=== PATIENT | female | born 1960 | race Caucasian/White ===

== ENCOUNTER → 2021-11-07 14:03 | Outpatient (CLI) | payer OTHER, SELFPAY ==
--- NOTE | ~2021-11-07 | MM_ITS ---
EXAMINATION: MM screening eduar BI w elissa HISTORY: Screening TECHNIQUE: Craniocaudal and mediolateral oblique 3-D tomosynthesis images were obtained and synthetic 2-D images were generated. CAD analysis was submitted and interpreted. COMPARISON: No prior mammogram is available for comparison at this institution. BREAST PARENCHYMAL COMPOSITION: The breasts are heterogenously dense, which may obscure small masses FINDINGS: There is no evidence of suspicious mass, calcification, or architectural distortion to sugg est malignancy in either breast. There has been no suspicious interval change. IMPRESSION: 1. No mammographic evidence of malignancy. 2. Recommend routine screening mammography in one year. BI-RADS Category 1: Negative Reviewed, dictated and finalized at location A.
== END ==
PROVIDERS: PCP Family Medicine; Visit Provider Nurse Practitioner Gerontology
DX: Z12.31 Encounter for screening mammogram for malignant neoplasm of breast (principal)
CPT/HCPCS: 77063; 77067

== ENCOUNTER 2022-06-22 07:57 | Outpatient (CLI) | payer OTHER, SELFPAY ==
--- NOTE | ~2022-06-22 | MMUS_ITS ---
EXAMINATION: MM diagnostic eduar RT w elissa, US breast RT complete HISTORY: Breast mass at 10:00 TECHNIQUE: Full field and spot ML, MLO and CC 3-D tomosynthesis images of the right breast were perfo rmed and synthetic 2-D images were generated. CAD analysis was submitted and interpreted. High resolu tion complete right breast ultrasound examination including all 4 quadrants and subareolar area was p erformed. COMPARISON: 11/07/2021 bilateral screening mammogram BREAST PARENCHYMAL COMPOSITION: The breasts are extremely dense, which lowers the sensitivity of mamm ography. FINDINGS: MAMMOGRAPHIC FINDINGS: No suspicious mass or architectural distortion, malignant callus case, skin thickening or retraction of the right breast is detected. The very dense stroma may obscure masses. Ultrasound examination of the complete right breast was per formed. ULTRASOUND: No suspicious mass or shadowing is detected. No cyst or other significant sonographic findings is not ed. IMPRESSION: 1. No mammographic evidence of malignancy 2. Routine mammographic screening is recommended. BI-RADS Category 1: Negative Reviewed, dictated and finalized at location A. MATION TECHNOLOGIST IMPRESSION: 1. No mammographic evidence of malignancy 2. Routine mammographic screening is recommended. BI-RADS Category 1: Negative
--- NOTE | ~2022-06-22 | MR_ITS ---
EXAMINATION: MR brain/brain stem wo con DATE: 06/22/2022 09:23 INDICATION: Vertigo. Headache. TECHNIQUE: Magnetic resonance imaging (MRI) of the brain and brainstem was performed without intraven ous contrast. COMPARISON: None. FINDINGS: There is no intracranial hemorrhage, acute infarction, or abnormal intracranial mass lesion . The ventricles are normal in size. The paranasal sinuses are clear. The mastoid air cells are nathaniel l. The orbits are normal. IMPRESSION: 1. Normal brain. Reviewed, dictated and finalized at location A. ERSHIP DEVELOPMENT MANAGER IMPRESSION: 1. Normal brain.
== END 2022-06-22 07:58 ==
PROVIDERS: PCP Family Medicine; Visit Provider Family Medicine
DX: R51.9 Headache, unspecified (principal); R42 Dizziness and giddiness; N63.12 Unspecified lump in the right breast, upper inner quadrant
CPT/HCPCS: 70551; 76641; 77061; 77065; G0279

== ENCOUNTER → 2023-02-28 11:37 | Outpatient (CLI) | payer OTHER, SELFPAY ==
--- NOTE | ~2023-02-28 | MM_ITS ---
EXAMINATION: MM screening eduar BI w elissa HISTORY: Screening mammogram TECHNIQUE: Craniocaudal and mediolateral oblique 3-D tomosynthesis images were obtained and synthetic 2-D images were generated. CAD analysis was submitted and interpreted. COMPARISON: June 22, 2022 diagnostic right mammogram and complete right breast ultrasound November 07, 2021 bilateral screening mammogram BREAST PARENCHYMAL COMPOSITION: The breasts are extremely dense, which lowers the sensitivity of mamm ography. FINDINGS: There is no evidence of suspicious mass, calcification, or architectural distortion to sugg est malignancy in either breast. There has been no suspicious interval change. IMPRESSION: 1. No mammographic evidence of malignancy. 2. Recommend routine screening mammography in one year. BI-RADS Category 1: Negative Reviewed, dictated and finalized at location A.
== END ==
PROVIDERS: PCP Family Medicine; Visit Provider Family Medicine
DX: Z12.31 Encounter for screening mammogram for malignant neoplasm of breast (principal)
CPT/HCPCS: 77063; 77067

== ENCOUNTER 2023-04-10 16:33 | Emergency (ER) | payer OTHER, SELFPAY ==
--- NOTE | ~2023-04-10 | XR_ITS ---
EXAM: XR finger 4th LT min 2V DATE: 04/10/2023 17:30 HISTORY: finger injury, pain/swelling lt ring finger . COMPARISON: None available. FINDINGS: Normal mineralization. Mildly comminuted, predominantly oblique fracture of the midshaft o f the left fourth proximal phalange, with 3 mm overlap, 3 mm anteromedial displacement, and mild post erior angulation. No definite intra-articular extension No lytic or blastic lesion. Joint spaces are maintained. No erosion or periosteal change. Soft tissues within normal limits. IMPRESSION: Predominantly oblique fracture of the midshaft of the left fourth proximal phalange with mild overlap, displacement, and minimal angulation. Reviewed, dictated and finalized at location K. S DEPARTMENT MANAGER IMPRESSION: Predominantly oblique fracture of the midshaft of the left fourth p roximal phalange with mild overlap, displacement, and minimal angulation.
[2023-04-10 16:52] VITALS: BP 111/63; PULSE 74; RESP 16; TEMP 36.7; O2SAT 100
--- NOTE | 2023-04-10 17:19 | WC.ED.TRAUMA ---
HPI - Trauma General Chief Complaint: Extremity Injury, Upper Stated Complaint: INJURED FINGER Time Seen by Provider: 04/10/23 17:20 Source: patient, RN notes reviewed and old records reviewed Mode of arrival: ambulatory Limitations: no limitations History of Present Illness HPI narrative: 62-year-old female presents to [facility] with complaints of injury to her left ring finger while walking the dog around noon today when leash ended up wrapped around her finger and was jerked. Patient has swelling present to the mid aspect of he left ring finger with bruising and decreased mobility, Patient had on wedding ring which was tight and increasing the swelling to the 4th ring finger was cut off by nursing staff without injury to finger. Patient reports no tingling or numbness to her finger nail bed blanches well. MD complaint: other (leash wrapped around finger while walking dog and was jerked) Onset (ago): hour(s) (at noon today) Severity scale (1-10): 9 Treatments prior to arrival: cold therapy Related Data Allergies Allergy/AdvReac Type Severity Reaction Status Date / Time topiramate [From Topamax] AdvReac Intermediate Confusion Verified 04/10/23 17:32 Review of Systems Review of Systems: CONSTITUTIONAL: Denies fever, chills, or sweats. EYES: Denies visual changes, redness, or discharge. ENT: Denies rhinorrhea, congestion, sore throat, or otalgia. CARDIOVASCULAR: Denies chest pain, palpitations, or edema. RESPIRATORY: Denies cough or dyspnea. GASTROINTESTINAL: Denies abdominal pain, nausea, vomiting, or diarrhea. GENITOURINARY: Denies dysuria or hematuria. SKIN: Denies rash or itching. MUSCULOSKELETAL: Denies back pain, positive for left ring finger pain, or myalgia. NEUROLOGIC: Denies headache, numbness, or weakness. PSYCHIATRIC: Denies anxiety or depression. All systems reviewed & are unremarkable except as noted in HPI and below PMFSH Past Medical History Medical History Hypothyroidism (acquired) Migraines Failed topiramate, Aimovig, acetazolamide, baclofen, sumatriptan injectable and magnesium. Ovarian cyst Tinnitus Surgical History Surgical History S/P right oophorectomy Family History Family History Father Alcohol abuse Malignant neoplasm of prostate Hypertension Heart disease Sibling Heart disease Hypertension Mother Carcinoma of colon Social History Social History Social History: Caffeine- coffee Smoking status: Former smoker Second hand tobacco smoke exposure: No Smoking end date: 05/06/92 Alcohol intake: current Alcohol use details: Occasionally Substance use: never Substance use type: does not use Lack of Transportation: No Lack of Food: Never True Current Housing: I Have Housing Concerned About Future Housing: No Difficulty Paying Gas/Electric Bills: No Difficulty Paying for Meds: No Currently Unemployed: No Education: Associate Degree Difficulty w/ Childcare or Family Care: No Living arrangements: with family Occupation/Education: occupation Gender identity (if verbalized by the patient): Female Sexual Orientation (if Verbalized by the Patient): Straight or Heterosexual Comments At time of signature, agree with nursing past medical, surgical, social and family history. There is no relevant family history pertinent to the presenting complaint Exam Narrative: GENERAL: Well-appearing, well-nourished, and in no acute distress. HEAD: Normocephalic, atraumatic. EYES: PERRLA and EOMI. ENT: Nares clear, no rhinorrhea or epistaxis. Mucous membranes moist. NECK: Supple. no lymphadenopathy CHEST: Clear to auscultation. No respiratory distress.SAO2 100% on room air HEART: Regular rate and rhythm. No murmur heard. Normal per
== END 2023-04-10 18:34 | disposition home or self-care (01) ==
PROVIDERS: Emergency Provider Registered Nurse; PCP Family Medicine
DX: S62.615A Displaced fracture of proximal phalanx of left ring finger, initial encounter for closed fracture (principal); X50.9XXA Other and unspecified overexertion or strenuous movements or postures, initial encounter; Y93.K1 Activity, walking an animal; Z87.891 Personal history of nicotine dependence; E03.9 Hypothyroidism, unspecified
CPT/HCPCS: 29130; 73140; 99214; G0463

== ENCOUNTER 2023-04-19 02:58 | Day surgery (SDC) | payer OTHER, SELFPAY ==
[2023-04-17 12:44] VITALS: BMI 22.6
--- NOTE | 2023-04-17 12:44 | PC.NURSE ---
Report to the Outpatient Waiting Room, entrance under the green pavilion located off [facility], at time _1230__ on date _04/19/23. Planned Procedure Time: _1430_. Time changes happen often and if your time is changed the preop area will call you the afternoon before. - You and your visitor will be asked to self-screen and do not enter if you have any COVID symptoms. - A mask is optional within the hospital at this time. Patients may have clear liquids (water, carbonated beverages, clear teas, apple juice) until 8 hours prior to surgery with a maximum of 20 ounces. - No food from midnight until time of surgery - Infants may have breast milk until 4 hours before surgery, infant formula 6 hours prior to surgery. - Children will be allowed to drink immediately following surgery. If applicable, please bring a bottle or sippy cup to assist with drinking. Juice, water, soda, and popsicles are readily available. For infants on formula, please bring formula the day of surgery. Pacifiers are allowed. Take the following medications with a SIP of water the morning of surgery: ____THYROID DO NOT STOP ANY OF YOUR OTHER PRESCRIPTION MEDICATIONS PRIOR TO SURGERY ?EXCEPT THE FOLLOWING Medications to discontinue per physician SUPPLIMENTS/ VITAMINS Date to take last dose 04/17/23 Please no make-up, nail azeri, hairspray, perfume, deodorant, or body powder the day of surgery. No jewelry (including any body piercings) or valuables the day of surgery, leave them at home. Please take a shower or bath the night before, or the morning of, surgery with an antibacterial soap. Wear comfortable, loose fitting clothing. Children are encouraged to wear pajamas. - Jewelry must be removed prior to entering the operating room. Rings and piercings that are not removed may be cut off. - The hospital will not accept responsibility for valuables. - Please leave all valuables, including medications, at home the day of surgery. If you are going home after surgery, a licensed refuse driver must drive you home. - NO public transportation without another adult if you receive anesthesia. - We recommend that an adult stay with you for 24 hours following discharge. - We also recommend that you do not drive, make important decision, drink alcoholic beverages, or take any drugs that were not prescribed by your health care provider for at least 24 hours after your discharge time. For Pediatric surgeries, we recommend two adults accompany the child home. Follow any additional instructions given to you from your surgeon. If you or anyone in your household have experienced Covid symptoms in the past week, please notify your surgeon or the nurse liaison at the phone number below for possible testing. Telephone instructions given to PATIENT___and asked if any additional questions and then verbalized understanding. Patient advised to call surgeon office or pre surgery nurse liaison [phone] if any additional questions.
--- NOTE | ~2023-04-19 | XR_ITS ---
EXAMINATION: XR surgery orthopedic DATE: 04/19/2023 14:34 INDICATION: Left hand fourth proximal phalanx fracture. TECHNIQUE: 5 intraoperative fluoroscopic views of left hand were obtained. I wasn't present. Thoracic exposure time was 1 minute 40 seconds. COMPARISON: Left hand fourth digit radiographs 04/10/2023 FINDINGS: There is an oblique fracture of diaphysis of fourth proximal phalanx status post fixation w ith 2 pins. The distal fracture fragment demonstrates one cortical width palmar displacement and 5 de grees dorsal angulation. IMPRESSION: 1. Oblique fracture of diaphysis of fourth proximal phalanx with pin fixation. Reviewed, dictated and finalized at location A. CAL STAFF DIRECTOR
[2023-04-19 12:10] VITALS: BP 117/79; PULSE 63; RESP 16; TEMP 36.7; O2SAT 100
--- NOTE | 2023-04-19 12:19 | WPDANESEPPF ---
Anes - Initial Pre Proc Eval Procedure: Operation Date: 04/19/23 14:30 Proposed Procedures p Closed Reduction, Percutaneous Pinning, Possible Open Reduction Internal Fixation Left Ring Finger Proximal Phalanx Fracture - Azeem Diaz MD Date/Time: 04/19/23 12:19 Surgeon: Azeem Diaz MD Pre Op Diagnosis: left ring finger proximal phalanx fx Patient Data Age: 62 Gender: F Height: 1.57 m Weight: 56 kg Allergies Allergy/AdvReac Type Severity Reaction Status Date / Time topiramate [From Topamax] AdvReac Intermediate Confusion Verified 04/17/23 12:31 Home Medications Medication Instructions Recorded Confirmed Type thyroid (pork) 30 mg tablet See Rx Instructions .Route 04/03/23 04/17/23 Rx ([place] Thyroid) .COMPLEX #90 tabs Adrenal Flow 1 cap PO DAILY 04/17/23 History Calcuim Lactate 1 cap PO DAILY 04/17/23 History Estrodim 1 cap PO DAILY 04/17/23 History Magnessium/Calcium 2 cap PO DAILY 04/17/23 History Patient hx anesthesia problems: none Family hx anesthesia problems: none Results Review: All pre-operative results and documents have been reviewed as part of the pre-operative evaluation. [facility] Past Medical History Medical History Hypothyroidism (acquired) Migraines Failed topiramate, Aimovig, acetazolamide, baclofen, sumatriptan injectable and magnesium. Ovarian cyst Tinnitus Surgical History Surgical History S/P right oophorectomy Family History Family History Father Alcohol abuse Malignant neoplasm of prostate Hypertension Heart disease Sibling Heart disease Hypertension Mother Carcinoma of colon Social History Social History Social History: Caffeine- coffee Smoking packs per day: 0.1 Smoking cigarettes per day: 2.0 Years smoked: 10 Smoking pack-years: 1.00 Smoking status: Former smoker Second hand tobacco smoke exposure: No Smoking end date: 05/06/92 Alcohol intake: current Alcohol use details: RARE Substance use: never Substance use type: does not use Lack of Transportation: No Lack of Food: Never True Current Housing: I Have Housing Concerned About Future Housing: No Difficulty Paying Gas/Electric Bills: No Difficulty Paying for Meds: No Currently Unemployed: No Education: Associate Degree Difficulty w/ Childcare or Family Care: No Living arrangements: with family Occupation/Education: occupation Gender identity (if verbalized by the patient): Female Sexual Orientation (if Verbalized by the Patient): Straight or Heterosexual Anes - Eval Final PreProcedure Day of Procedure 04/19/23 12:19 Patient weight: normal Heart: regular rate and rhythm Lungs: clear to auscultation Airway: Mallampati scale class II Neurological: alert and oriented Last oral intake: >/= 8 hours ASA classification: III Emergent: no Anesthetic plan: proceed Anesthesia type and monitoring: general LMA and standard monitoring Results Review: All pre-operative results and documents have been reviewed as part of the pre-operative evaluation. Informed Consent: The patient's anesthetic plan and its attendant risks and benefits were discussed with the patient/family/POA. Questions were solicited and answers provided to the satisfaction of the patient/family/POA.
--- NOTE | 2023-04-19 12:27 | WPDHPUPDATE1 ---
History and Physical Update Update Date/Time: 04/19/23 12:27 Patient seen and examined in pre-operative holding area. No interval change in medical history or symptoms. Patient recalls previous discussion of benefits and alternatives to procedure. Continues to desire to proceed with left ring finger proximal phalanx crpp poss orif. Reviewed procedure, post-op expectations and risks including but not limited to bleeding, infection, injury to tendon/nerve/vessel, decreased hand function, stiffness, RSD, no change or worsening of symptoms, malunion, nonunion. I discussed the possible use of assistants and their participation in the case. Patient stated understanding and signed the consent form wishing to proceed.
--- NOTE | 2023-04-19 12:28 | W.PM.PROC2 ---
Procedure Note - Detailed Date of Procedure 04/19/23 Pre-op Diagnosis left ring finger proximal phalanx fx Post-op Diagnosis Same Procedure Performed left ring finger crpp Surgeon Azeem Diaz MD Anesthesia MAC Description of Procedure INFORMED CONSENT: The patient was seen and examined and marked in the pre-op area.? The patient signed the consent form. PROCEDURE IN DETAIL:The patient taken back to OR on the stretcher in supine position. Time out performed with anesthesia, surgeon and staff agreeing on patient's name site and surgery to be performed SCDs were placed on the lower extremities and inflated. A tourniquet was placed on {left} upper extremity and antibiotics given IV After anesthesia administered sedation I injected {5}cc 1%lido and 0.5% marcaine plain for digital block in the palm The?{left upper extremity}?was prepped and draped in sterile fashion the??{left upper extremity} was? exsanguinated with Esmarch bandage and tourniquet inflated to 250mmHg The mini c-arm was draped and brought into the field. The fracture was identified and with closed reduction I was able to improve reduction but it was unstable. I proceeded with placement of a 0.045 and 0.035 k-wire in crossing retrgrade fashion to secure and maintain reduction done with flurosocopy guidance and confirmation on multiple views. There was no scissoring of the digit and no tendon limitation. The pins were trimmed and dressed with a betadine soaked chlorhexidine swab followed by a dressing of4x4, alondra, ulnar gutter splint and amy after the tourniquet was let down noting the hand was warm and well perfused. The patient was then awaken from anesthesia and transferred to the recovery room in stable condition.? Complications - none EBL- 0cc Disposition - home in stable conditions [facility] Billing Surgery - Charge Forward: Surgery Billing ([id number])
[2023-04-19] MEDS: SCOPOLAMINE 1.5 MG PATCH TRANSDERM (12:35)
[2023-04-19] MEDS: LACTATED RINGERS 1,000 ML 30 ML IV CONT (12:44)
[2023-04-19] MEDS: ceFAZolin 2 GM/D5W 50 ML 2 GM/50 ML BAG IVPB (13:09)
[2023-04-19] MEDS: LIDOCAINE HCL 1% LOCAL INJ 20 ML VIAL 2.5 ML INFILTRATE (13:14)
[2023-04-19] MEDS: KETOROLAC 15 MG/ML VIAL (*BKC) IV PUSH (13:51)
[2023-04-19 14:07] VITALS: BP 95/60; PULSE 77; RESP 14; O2SAT 96
--- NOTE | 2023-04-19 14:14 | SUR.OPER ---
c wire .035 x1 lot [id number], exp 2024-07-28. c-wire .045 x1 lot [id number], exp 2025-12-14. 2 c-wire in left ring finger.
[2023-04-19 14:35] VITALS: BP 105/64; PULSE 63; RESP 14
[2023-04-19 15:05] VITALS: BP 119/75; PULSE 63; RESP 14
== END 2023-04-19 15:31 | disposition home or self-care (01) ==
PROVIDERS: PCP Family Medicine; Visit Provider Plastic Surgery
PROC: (CPT 26727; principal; 2023-04-19 14:30)
DX: S62.615A Displaced fracture of proximal phalanx of left ring finger, initial encounter for closed fracture (principal); W23.0XXA Caught, crushed, jammed, or pinched between moving objects, initial encounter; E03.9 Hypothyroidism, unspecified; Z87.891 Personal history of nicotine dependence
CPT/HCPCS: 26727; 99199; A9270; C1713; J0690; J1100; J1170; J1885; J2250; J2405; J2704; J3010; J7120

== ENCOUNTER 2023-04-25 10:08 | Outpatient (CLI) | payer OTHER, SELFPAY ==
--- NOTE | ~2023-04-25 | XR_ITS ---
EXAMINATION: XR hand LT min 3V INDICATION: Displaced fracture of the fourth proximal phalanx, follow-up TECHNIQUE: Three views of the left hand are obtained. COMPARISON: 04/10/2023 FINDINGS: There has been interval percutaneous pinning of the previously described fourth metacarpal fracture. A splint has been applied. Alignment is essentially anatomic. There appears to be early orquidea cified callus formation. No additional fracture is identified. IMPRESSION: 1. Interval percutaneous pinning and splinting of the previously described left fourth metacarpal fra cture and essentially anatomic alignment with early healing. Reviewed, dictated and finalized at location L. PACKER IMPRESSION: 1. Interval percutaneous pinning and splinting of the previously described left fourth metacarpal fracture and essentially anatomic alignment with early heali eleni.
== END 2023-04-25 10:09 | disposition home or self-care (01) ==
PROVIDERS: PCP Family Medicine; Visit Provider Physician Assistant Surgical
DX: S62.615D Displaced fracture of proximal phalanx of left ring finger, subsequent encounter for fracture with routine healing (principal); Z96.7 Presence of other bone and tendon implants
CPT/HCPCS: 73130

== ENCOUNTER 2023-05-20 13:52 | Outpatient (CLI) | payer OTHER, SELFPAY ==
--- NOTE | ~2023-05-20 | XR_ITS ---
XR hand LT min 3V DATE: 05/20/2023 14:09 INDICATION: Fourth proximal phalanx fracture TECHNIQUE: 3 views of left hand. Lateral view of second digit. COMPARISON: 04/25/2023 left hand 04/10/2023 left fourth digit FINDINGS: Interval removal of 2 K wires since 04/25/2023. Linear oblique lucent fracture line of the shaft of the proximal phalanx is still evident following pin removal. No significant change in position or alignment. IMPRESSION: Removal of pins; linear oblique lucent fracture line is still evident, no significant meliton nge in position or alignment Reviewed, dictated and finalized at location B. SUPERVISOR IMPRESSION: Removal of pins; linear oblique lucent fracture line is still evide nt, no significant change in position or alignment
== END 2023-05-20 13:53 | disposition home or self-care (01) ==
LOC: ANHIMG 13:55
PROVIDERS: PCP Family Medicine; Visit Provider Physician Assistant Surgical
DX: S62.615D Displaced fracture of proximal phalanx of left ring finger, subsequent encounter for fracture with routine healing (principal); X58.XXXD Exposure to other specified factors, subsequent encounter
CPT/HCPCS: 73130

== ENCOUNTER 2024-03-02 16:17 | Outpatient (CLI) | payer OTHER, SELFPAY ==
--- NOTE | ~2024-03-02 | MM_ITS ---
EXAMINATION: MM screening eduar BI w elissa HISTORY: Screening mammogram TECHNIQUE: Craniocaudal and mediolateral oblique 3-D tomosynthesis images were obtained and synthetic 2-D images were generated. CAD analysis was submitted and interpreted. COMPARISON: 02/28/2023, 06/22/2022, 11/07/2021 BREAST PARENCHYMAL COMPOSITION:Dense: The breasts are extremely dense, which lowers the sensitivity o f mammography. FINDINGS: No suspicious mass, calcification, or architectural distortion are identified in either chen ast to suggest malignancy. There has been no suspicious interval change. IMPRESSION: No mammographic evidence of malignancy. Recommend routine screening mammography in one year. BI-RADS Category 1: Negative Reviewed, dictated and finalized at location .
== END 2024-03-02 16:18 | disposition home or self-care (01) ==
PROVIDERS: PCP Internal Medicine; Visit Provider Internal Medicine
DX: Z12.31 Encounter for screening mammogram for malignant neoplasm of breast (principal)
CPT/HCPCS: 77063; 77067

== ENCOUNTER 2024-08-11 08:20 | Outpatient (CLI) | payer BC, SELFPAY ==
--- NOTE | ~2024-08-11 | US_ITS ---
US abdomen limited INDICATION: Abdomen pain PROCEDURE: Realtime right upper abdominal ultrasound. COMPARISON: No prior studies for comparison. FINDINGS: The pancreas is normal without focal mass or pancreatic ductal dilation. Liver echotexture is normal without focal mass or intrahepatic biliary dilatation. There is normal directional flow i n the portal vein. The gallbladder is normal without stones, gallbladder wall thickening or pericholecystic fluid. Comm on bile duct measures 5 mm. No sonographic Figueroa's sign. IMPRESSION: 1: Normal limited abdominal ultrasound. Reviewed, dictated and finalized at location A.
== END 2024-08-11 08:21 | disposition home or self-care (01) ==
PROVIDERS: PCP Internal Medicine; Visit Provider Internal Medicine
DX: R10.11 Right upper quadrant pain (principal)
CPT/HCPCS: 76705

== ENCOUNTER 2024-11-19 07:44 | Outpatient (CLI) | payer BC, SELFPAY ==
--- NOTE | ~2024-11-19 | MR_ITS ---
MRI of the cervical spine Clinical History: Hyperreflexia Technique: Axial T2-weighted and gradient images, and sagittal T1-weighted, T2-weighted, and STIR sultana ges were acquired. Findings: No fracture or subluxation seen in the cervical spine. Vertebral bodies maintain normal hei ght and alignment. No bone marrow signal abnormality seen. At C2-C3, C3-C4, C4-C5, there is no significant disc bulge or herniation. No spinal canal stenosis, c ord compression, or neural foraminal narrowing at these levels. At C5-C6, there is minimal disc osteophyte complex. Probable minimal left neural foraminal narrowing. Right neural foramen preserved. No canal stenosis or cord compression. At C6-C7, there is minimal disc osteophyte complex. No spinal canal stenosis, cord compression, or ne ural foraminal narrowing. No abnormal signal seen in the spinal cord. Paravertebral soft tissues are unremarkable. Impression: Minimal degenerative change, as above. Reviewed, dictated and finalized at location M. Impression: Minimal degenerative change, as above.
== END 2024-11-19 07:45 | disposition home or self-care (01) ==
LOC: MICIMG 07:45
PROVIDERS: PCP Internal Medicine; Visit Provider Psychiatry & Neurology Neurology
DX: R29.2 Abnormal reflex (principal)
CPT/HCPCS: 72141